=== PATIENT | female | born 1980 | race American Indian/Alaskan Native ===

== ENCOUNTER 2021-12-05 18:13 | Emergency (ER) | payer MEDICAID ==
[2021-12-06] MEDS ORDERED: ONDANSETRON 4 MG ODT TAB PO ONE (00:40)
[2021-12-06] MEDS ORDERED: KETOROLAC 10 MG TAB PO ONE (00:40)
[2021-12-06] MEDS ORDERED: BUTALB/ACETAMINOPHEN/CAFFEINE TAB PO ONE (00:40)
--- NOTE | 2021-12-06 00:46 | Emergency Department Report ---
ED Headache HPI - General Chief Complaint: Headache Stated Complaint: HEAD/NECK PAIN Source: patient, RN notes reviewed Exam Limitations: no limitations - History of Present Illness Initial Comments: Patient is a 40-year-old -[place] female with no past medical history who presents to the ED with complaint of acute onset persistent occipital headache that radiates from the neck diffusely to the occipital and parietal scalp for the last 1 week. Patient states that she has been taking [id number] medications with no relief. Patient also states that she has also had intermittent nausea since the onset of the symptoms. Patient denies dizziness, syncope, traumatic injury, fall, vomiting, fever, chills, cough, chest pain or shortness of breath, numbness and tingling or weakness of upper and lower extremities bilaterally, abdominal pain, sore throat, nasal and sinus congestion or change in vision. Timing/Duration: 1 week Quality: severe, sharp, throbbing Head Injury Location: occipital Recent Head Trauma: no recent headache/trauma Associated Symptoms: denies symptoms. denies: confusion, fatigue, facial pain, fever/chills, flushing, loss of consciousness, nasal congestion, nasal drainage, numbness in legs/feet, seizures, stiff neck, vision changes Allergies/Adverse Reactions: Allergies No Known Allergies Allergy (Verified 12/06/21 00:52) Home Medications: Ambulatory Orders Baclofen 20 mg PO Q12H PRN #30 tab 12/06/21 Butalb/Acetamin/Caff 50-325-40 [Fioricet 50-325-40] 1 - 2 tab PO Q6HR PRN #15 tab 12/06/21 Ketorolac [Toradol] 10 mg PO Q8H PRN #20 tab 12/06/21 Ondansetron [Zofran Odt] 4 mg PO Q8HR PRN #15 tab.rapdis 12/06/21 ED Review of Systems ROS: Stated complaint: HEAD/NECK PAIN Other details as noted in HPI Constitutional: denies: chills, fever Eyes: denies: eye pain, eye discharge, vision change ENT: denies: ear pain, throat pain Respiratory: denies: cough, shortness of breath, wheezing Cardiovascular: denies: chest pain, palpitations Endocrine: no symptoms reported Gastrointestinal: denies: abdominal pain, nausea, diarrhea Genitourinary: denies: urgency, dysuria, discharge Musculoskeletal: denies: back pain, joint swelling, arthralgia Skin: denies: rash, lesions Neurological: headache. denies: weakness, paresthesias Psychiatric: denies: anxiety, depression Hematological/Lymphatic: denies: easy bleeding, easy bruising ED Past Medical Hx - Medications Home Medications: Home Medications Medication Instructions Recorded Confirmed Last Taken Type Baclofen 20 mg PO Q12H PRN #30 tab 12/06/21 Unknown Rx Butalb/Acetamin/Caff 50-325-40 1 - 2 tab PO Q6HR PRN #15 tab 12/06/21 Unknown Rx [Fioricet 50-325-40] Ketorolac [Toradol] 10 mg PO Q8H PRN #20 tab 12/06/21 Unknown Rx Ondansetron [Zofran Odt] 4 mg PO Q8HR PRN #15 tab.rapdis 12/06/21 Unknown Rx ED Physical Exam - General Limitations: No Limitations General appearance: alert, in no apparent distress - Head Head exam: Present: atraumatic, normocephalic, normal inspection - Eye Eye exam: Present: normal appearance, PERRL, EOMI Pupils: Present: normal accommodation - ENT ENT exam: Present: normal exam, normal orophraynx, mucous membranes moist, TM's normal bilaterally, normal external ear exam - Neck Neck exam: Present: normal inspection, tenderness (Palpable cervical paraspinal musculoskeletal tenderness), full ROM - Respiratory Respiratory exam: Present: normal lung sounds bilaterally. Absent: respiratory distress, wheezes, rhonchi, chest wall tenderness, accessory muscle use, decreased breath sounds - Cardiovascular Cardiovascular Exam: Present: regular rate, normal rhythm, normal heart sounds. Absent: systolic murmur, diastolic murmur, rubs, gallop - GI/Abdominal GI/Abdominal exam: Present: soft, normal bowel sounds. Absent: tenderness, guarding, rebound, rigid, hyperactive bowel sounds, organomegaly, mass - Extremities Exam Extremities exam: Present: normal inspection, full ROM, normal capillary refill. Absent: tenderness - Back Exam Back exam: Present: normal inspection, full ROM. Absent: tenderness, CVA tenderness (R), CVA tenderness (L), muscle spasm, paraspinal tenderness, vertebral tenderness - Neurological Exam Neurological exam: Present: alert, oriented X3, CN II-XII intact, normal gait, reflexes normal - Psychiatric Psychiatric exam: Present: normal affect, normal mood, anxious - Skin Skin exam: Present: warm, dry, intact, normal color. Absent: rash ED Course Vital Signs 12/05/21 21:24 Temperature 98.0 F Pulse Rate 67 Respiratory 18 Rate Blood Pressure 130/88 O2 Sat by Pulse 95 Oximetry ED Medical Decision Making - Medical Decision Making This is a 40-year-old -[place] female with no past medical history who presents to the ED with complaint of acute onset persistent occipital headache that radiates from the neck diffusely to the occipital and parietal scalp for the last 1 week. Patient states that she has been taking [id number] medications with no relief. Patient also states that she has also had intermittent nausea since the onset of the symptoms. In the ED, patient is alert and oriented x3 and is not in distress. Patient is hemodynamically stable. Patient has not had any neurological symptoms. Patient symptoms are likely due to cervicogenic headache or cervical paraspinal muscle spasm. Patient was treated for pain in the ED and discharged home on pain medications and advised to follow-up with her primary care physician in 7 to 10 days for reevaluation or return to the ED immediately if symptoms get worse. - Differential Diagnosis Migraine headache; tension headache; cervicogenic headache; cervical sprain Critical care attestation.: If time is entered above; I have spent that time in minutes in the direct care of this critically ill patient, excluding procedure time. ED Disposition Clinical Impression: Cervicogenic headache, Cervical paraspinous muscle spasm Acute tension headache Qualifiers: Intractability: not intractable Qualified Code(s): G44.209 - Tension-type headache, unspecified, not intractable Disposition: 01 HOME / SELF CARE / HOMELESS Is pt being admited?: No Does the pt Need Aspirin: No Condition: Stable Instructions: Tension Headache, Adult, [id number], Cervicogenic Headache, General Headache Without Cause, [id number] Additional Instructions: Take medication as advised, drink plenty of fluids, follow-up with your primary care physician in 7 to 10 days for reevaluation. Return to the ED immediately if symptoms get worse. Prescriptions: Baclofen 20 mg PO Q12H PRN #30 tab PRN Reason: Muscle Spasm Butalb/Acetamin/Caff 50-325-40 [Fioricet 50-325-40] 1 - 2 tab PO Q6HR PRN #15 tab PRN Reason: Headache Ketorolac [Toradol] 10 mg PO Q8H PRN #20 tab PRN Reason: Pain Ondansetron [Zofran Odt] 4 mg PO Q8HR PRN #15 tab.rapdis PRN Reason: Nausea Referrals: CHULA JENSEN MD [Staff Physician] - 3-5 Days Time of Disposition: 00:44 Print Language: [facility]
[2021-12-06 07:09] VITALS: BP 130/89
== END 2021-12-06 01:25 | disposition home or self-care (01) ==
LOC: ED 18:13
DX: G44.86 Cervicogenic headache (principal); M62.838 Other muscle spasm; G44.209 Tension-type headache, unspecified, not intractable
CPT/HCPCS: 99282; J3490; Q0162